=== PATIENT | female | born 1950 | race Caucasian/White ===

== ENCOUNTER 2016-12-31 16:27 | Emergency (ER) | payer OTHER, MEDICARE ==
[2016-12-31 16:44] VITALS: BP 135/85
--- NOTE | 2016-12-31 17:45 | UC ---
Sky Marx Anna, scribed for Gallo Ray MD on 12/31/16 at 1740 . Respiratory Complaint HPI - HPI Summary HPI Summary: Patient is a 66 y/o female coming to [facility] presenting with an intermittent productive cough that began two weeks ago. She has additionally had nasal discharge with some blood, nasal congestion, sinus pressure, and ear pressure. She has some SOB upon exertion. She was recently diagnosed with cellulitis treated with doxycycline. Upon returning to the doctor, she had another week of doxycycline, which she finished 2 weeks ago. She had one day of a sore throat, which was resolved after she continued her doxycycline with her cellulitis. Patient medications were reviewed this visit. - History of Current Complaint Chief Complaint: UCRespiratory Stated Complaint: EAR PLUGGED CONGESTION COUGH Time Seen by Provider: 12/31/16 17:31 Hx Obtained From: Patient ?: No Severity Initially: Moderate Severity Currently: Moderate Character: Cough: Productive - Allergies/Home Medications Allergies/Adverse Reactions: Allergies Allergy/AdvReac Type Severity Reaction Status Date / Time xylocaine blue AdvReac Intermediate Tachycardia Uncoded 11/22/16 20:36 PMH/Surg Hx/FS Hx/Imm Hx Cardiovascular History: Hypertension Other Cardiovascular History: Denies IA Respiratory History: Asthma - as a child, resolved - Surgical History Surgical History: Yes Surgery Procedure, Year, and Place: . breast cyst removal - Family History Known Family History: Negative: Blood Disorder - Social History Alcohol Use: Occasionally Substance Use Type: None Smoking Status (MU): Never Smoked Tobacco - Immunization History Most Recent Influenza Vaccination: 2012 Most Recent Tetanus Shot: January 2013 Most Recent Pneumonia Vaccination: 2011 Review of Systems Constitutional: Negative Skin: Other - cellulitis, resolved Eyes: Negative ENT: Ear Ache - pressure, Nasal Discharge, Other - sinus pressure Respiratory: Shortness Of Breath, Cough Cardiovascular: Negative Gastrointestinal: Negative Genitourinary: Negative Motor: Negative Neurovascular: Negative Musculoskeletal: Negative Neurological: Negative Psychological: Negative All Other Systems Reviewed And Are Negative: Yes Physical Exam Triage Information Reviewed: Yes Appearance: Well-Appearing, No Pain Distress Vital Signs: Initial Vital Signs Temp 97.9 F 12/31/16 16:41 Pulse 94 12/31/16 16:41 Resp 16 12/31/16 16:41 BP 135/85 12/31/16 16:41 Pulse Ox 100 12/31/16 16:41 Elevated BP noted. Vital Signs Reviewed: Yes Eye Exam: Normal - EOMI, PRIYA ENT: Positive: Pharynx normal - Post pharynx benign, Nasal drainage, Other:. Negative: TM red Neck: Positive: Supple, Nontender Respiratory: Positive: Lungs clear, Normal breath sounds, No respiratory distress, Other: - cough dry Cardiovascular: Positive: RRR Musculoskeletal Exam: Normal Musculoskeletal: Positive: Strength Intact, ROM Intact Neurological Exam: Normal - sensory/motor intact, A&O x3 Psychological Exam: Normal - affect/mood appropriate Skin Exam: Normal - warm, dry, skin color reflects adequate perfusion UC Diagnostic Evaluation - Laboratory O2 Sat by Pulse Oximetry: 100 Respiratory Course/Dx - Differential Dx/Diagnosis Provider Diagnoses: Blood pressure in poor control. SINUSITIS,LEFT SEROUS OTITIS MEDIA. Discharge - Discharge Plan Condition: Stable Disposition: HOME Prescriptions: Amoxicillin/Clavulanate TAB* [Augmentin TAB 875*] 875 mg PO BID #20 tab Patient Education Materials: Sinusitis (ED), Serous Otitis Media (ED) Referrals: Shantel Rothman MD [Primary Care Provider] - Additional Instructions: FOLLOW UP WITH YOUR DOCTOR. RETURN TO THE EMERGENCY DEPARTMENT FOR ANY WORSENING OF YOUR CONDITION OR QUESTIONS OR CONCERNS. The documentation as recorded by the Sky wetzel Anna accurately reflects the service I personally performed and the decisions made by me, Gallo Ray MD.
== END 2016-12-31 17:48 | disposition home or self-care (01) ==
LOC: UCEAST 16:27
DX: J32.9 Chronic sinusitis, unspecified (principal); I10 Essential (primary) hypertension; H65.92 Unspecified nonsuppurative otitis media, left ear
CPT/HCPCS: 99212; G0463

== ENCOUNTER 2017-04-15 06:17 | Emergency (ER) | payer MEDICARE, OTHER ==
[2017-04-15] MEDS ORDERED: NS 0.9% 1000 ML* 1,000 ML IV ONE (06:39)
[2017-04-15] MEDS ORDERED: Ondansetron INJ* 2 MG/ML VIAL IV ONE ×2 (06:39→07:43)
--- NOTE | 2017-04-15 06:56 | ED ---
Terrence Marx Nikita, scribed for Gallo Ray MD on 04/15/17 at 0634 . Complex/Multi-Sys Presentation - HPI Summary HPI Summary: This patient is a 66 year old F BIBA to ED with a chief complaint of nausea and dizziness since 0400. Pt woke up feeling nauseous and dizzy/lightheaded, staggered to the bathroom where she passed stool (loose stool, not unusual). The CC is described as totally not myself and feeling off-balanced (resolved ). The pt rates the pain 0/10 in severity. Symptoms aggravated by nothing (not aggravated by movement of head). Symptoms alleviated by nothing. Patient reports nausea, dizziness, and diaphoresis. Patient denies diarrhea, ORTEGA, CP, ear pain, sinus infection, abdominal pain, rhinorrhea, urinary symptoms, body aches, and congestion. Pt denies any previous episodes. Pt is takes potassium ( usually takes it at 0630), B12, and Vitamin C. Pt reports she tends to use Tylenol when she feels palpitations during travel. PMHx of Afib. - History Of Current Complaint Time Seen by Provider: 04/15/17 06:19 Hx Obtained From: Patient Onset/Duration: Sudden Onset - 399, Lasting Hours, Still Present Timing: Constant Severity Currently: None - 0/10 Aggravating Factor(s): Nothing (movement of head does not aggravate) Alleviating Factor(s): Nothing Associated Signs And Symptoms: Positive: Other - Pt reports nausea, dizziness ( lightheaded), totally not myself, feeling off-balanced (resolved), diaphoresis. Patient denies diarrhea, ORTEGA, CP, ear pain, sinus infection, abdominal pain, rhinorrhea, urinary symptoms, body aches, and congestion. - Allergies/Home Medications Allergies/Adverse Reactions: Allergies Allergy/AdvReac Type Severity Reaction Status Date / Time xylocaine blue AdvReac Intermediate Tachycardia Uncoded 04/15/17 06:29 PMH/Surg Hx/FS Hx/Imm Hx Cardiovascular History: Reports: Hx Hypertension - htn/rapid heart rate, Other Cardiovascular Problems/Disorders - mitral valve prolapse (years ago) Sensory History: Reports: Hx Contacts or Glasses Opthamlomology History: Reports: Hx Contacts or Glasses Psychiatric History: Reports: Hx Anxiety - Cancer History Hx Chemotherapy: No Hx Radiation Therapy: No - Surgical History Surgery Procedure, Year, and Place: . breast cyst removal Infectious Disease History: Denies: Hx Clostridium Difficile, Hx Hepatitis, Hx Human Immunodeficiency Virus (HIV), Hx of Known/Suspected MRSA, Hx Shingles, Hx Tuberculosis, Hx Known/ Suspected VRE, Hx Known/Suspected VRSA, History Other Infectious Disease, Traveled Outside the [place] in Last 30 Days - Family History Known Family History: Negative: Blood Disorder - Social History Alcohol Use: Occasionally Substance Use Type: Reports: None Smoking Status (MU): Never Smoked Tobacco Review of Systems Positive: Skin Diaphoresis Positive: Other - NEGATIVE: ear pain, sinus infection, rhinorrhea, congestion Negative: Chest Pain Positive: Nausea. Negative: Abdominal Pain, Diarrhea Positive: other - NEGATIVE: urinary symptoms Positive: Other - NEGATIVE: body aches Neurological: Other - Dizziness (lightheaded) Negative: Headache All Other Systems Reviewed And Are Negative: Yes Physical Exam - Summary Physical Exam Summary: General: mildly ill appearing, no pain distress Skin: warm, color reflects adequate perfusion, dry Head: normal Eyes: EOMI, PRIYA ENT: normal Neck: supple, nontender Respiratory: CTA, breath sounds present Cardiovascular: RRR Abdomen: soft, nontender Bowel: present Musculoskeletal: normal, strength/ROM intact Neurological: normal, sensory/motor intact, A&O x3 Psychological: affect/mood appropriate Triage Information Reviewed: Yes Vital Signs On Initial Exam: Initial Vitals Temp Pulse Resp BP Pulse Ox 97.1 F 66 10 / 99 04/15/17 06:18 04/15/17 06:18 04/15/17 06:18 04/15/17 06:18 04/15/17 06:18 Vital Signs Reviewed: Yes - Fitzwilliam Coma Scale Coma Scale Total: 15 Diagnostics - Vital Signs Vital Signs Temp Pulse Resp BP Pulse Ox 04/15/17 06:20 97.1 F 66 10 / 99 04/15/17 06:18 97.1 F 66 10 99 - Laboratory Lab Statement: Any lab studies that have been ordered have been reviewed, and results considered in the medical decision making process. - EKG 0620 Cardiac Rate: NL - 66 bpm EKG Rhythm: Sinus Rhythm ST Segment: Normal Ectopy: None Complex Multi-Symp Course/Dx Course Of Treatment: Work up and disposition pending at shift change. Signed out to Dr Nicholas. Assessment/Plan: This patient is a 66 year old F BIBA to ED with a chief complaint of nausea and dizziness since 0. Pt woke up feeling nauseous and dizzy/lightheaded, staggered to the bathroom where she passed stool (loose stool , not unusual). The CC is described as totally not myself and feeling off- balanced (resolved). The pt rates the pain 0/10 in severity. Symptoms aggravated by nothing (not aggravated by movement of head). Symptoms alleviated by nothing. Patient reports nausea, dizziness, and diaphoresis. Patient denies diarrhea, ORTEGA, CP, ear pain, sinus infection, abdominal pain, rhinorrhea, urinary symptoms, body aches, and congestion. Pt denies any previous episodes. In the ED course, pt was given Zofran and fluids. - Diagnoses Provider Diagnoses: Lightheaded, Nausea, Balance problem Discharge - Discharge Plan Condition: Stable Disposition: OTHER Discharge Disposition Comment: . Referrals: Shantel Rothman MD [Primary Care Provider] - The documentation as recorded by the Terrence wetzel Nikita accurately reflects the service I personally performed and the decisions made by me, Gallo Ray MD.
[2017-04-15 07:15] LABS: Hematocrit 41 % (35-47); Hemoglobin 13.7 g/dl (12.0-16.0); Mean Corpuscular HGB Conc 33 g/dl (31-36); Mean Corpuscular Hemoglobin 30 pg (27-31); Mean Corpuscular Volume 90 fL (80-97); Mean Platelet Volume 9 um3 (7.4-10.4); Red Blood Count 4.56 10^6/ul (4.0-5.4); Red Cell Distribution Width 14 % (10.5-15); White Blood Count 9.1 10^3/ul (3.5-10.8)
[2017-04-15 07:38] LABS: ALT 20 U/L (7-52); AST 20 U/L (13-39); Albumin 4.2 g/dL (3.2-5.2); Alkaline Phosphatase 49 U/L (34-104); Anion Gap 7 mmol/L (2-11); BUN/Creatinine Ratio 28.6 (8-20); Blood Urea Nitrogen 26 mg/dL (6-24); C Reactive Protein < 1.00 mg/L (< 5.00); CO2 Carbon Dioxide 25 mmol/L (22-32); Calcium 9.3 mg/dL (8.6-10.3); Chloride 106 mmol/L (101-111); Creatine Kinase 119 U/L (10-223); EGFR African American 79.1 (>60); EGFR Non-African American 61.5 (>60); Globulin 2.3 g/dL (2-4); Glucose 124 mg/dL (70-100); Lipase 47 U/L (11.0-82.0); Magnesium 2.1 mg/dL (1.9-2.7); Potassium 3.6 mmol/L (3.5-5.0); Sodium 138 mmol/L (133-145); Total Protein 6.5 g/dL (6.4-8.9)
[2017-04-15] MEDS ORDERED: NS 0.9% 1000 ML* 3,000 ML IV ONE (07:42)
[2017-04-15] MEDS ORDERED: Meclizine TAB* 12.5 MG PO ONE (07:44)
--- NOTE | 2017-04-15 07:49 | RAD ---
HISTORY: Nausea COMPARISONS: None VIEWS: 1: frontal portable view of the chest at 7:25 AM FINDINGS: LINES AND TUBES: None. CARDIOMEDIASTINAL SILHOUETTE: There are calcified left hilar lymph nodes. PLEURA: The costophrenic angles are sharp. No pleural abnormalities are noted. LUNG PARENCHYMA: There is a calcified granuloma of the left upper lobe with a probable calcified granuloma at the left cardiophrenic angle. ABDOMEN: The upper abdomen is clear. There is no subphrenic gas. BONES AND SOFT TISSUES: No bone or soft tissue abnormalities are noted. IMPRESSION: EVIDENCE OF EXPOSURE TO GRANULOMATOUS DISEASE. NO ACTIVE CARDIOPULMONARY DISEASE.
--- NOTE | 2017-04-15 08:00 | RAD ---
HISTORY: Altered balance, dizziness COMPARISONS: None TECHNIQUE: Multiple contiguous axial CT scans were obtained of the head without intravenous contrast. FINDINGS: HEMORRHAGE/INFARCT: There is no hemorrhage or acute infarct. MASSES/SHIFT: There is no mass or shift. EXTRA-AXIAL SPACES: There are no extra-axial fluid collections. SULCI AND VENTRICLES: The sulci and ventricles are normal in size and position for the patient's stated age. CEREBRUM: There are no focal parenchymal abnormalities. BRAINSTEM: There are no focal parenchymal abnormalities. CEREBELLUM: There are no focal parenchymal abnormalities. VESSELS: The vessels are grossly normal. PARANASAL SINUSES: The paranasal sinuses are clear. ORBITS: The orbits are unremarkable. BONES AND SOFT TISSUE: No bone or soft tissue abnormalities are noted. OTHER: None IMPRESSION: NO ACUTE INTRACRANIAL PATHOLOGY.
[2017-04-15 08:49] LABS: TSH (Thyroid Stimulating Horm) 3.17 mcIU/mL (0.34-5.60)
[2017-04-15 09:23] VITALS: BP 127/62
[2017-04-15 10:11] LABS: Urine Bacteria Absent (Absent); Urine Bilirubin Negative (Negative); Urine Glucose Negative (Negative); Urine Nitrite Negative (Negative)
--- NOTE | 2017-04-15 14:41 | ED ---
Corina Marx Nilda, scribed for Nick Nicholas MD on 04/15/17 at 0743 . Progress - Progress Note Progress Note: Pt was signed out from Dr. Ray, pending disposition, awaiting Brain CT and CXR. Pt is a 66 y/o F who presents to ED c/o dizziness characterized as near syncopal. Sx began this morning upon waking up and have gradually worsened. Initially, she was not experiencing room spinning, but upon laying down for her CT, the design on the ceiling began spinning. Negative LOC. Sx aggravated by laying down, alleviated by nothing. Additionally c/o nausea and diaphoresis. Denies CP, SOB, weakness, slurred speech, tinnitus, hearing loss and edema. No recent illnesses. No prior similar episodes of sx. PMHx A Fib after which she is on potassium supplements. Is not on a blood thinner. NKDA. PE reveals: The patient is well-nourished in no acute distress and in no acute pain. The skin is warm and dry and skin color reflects adequate perfusion. HEENT: The head is normocephalic and atraumatic. The pupils are equal and reactive. The conjunctivae are clear and without drainage. She has some horizontal nystagmus. She has no facial droop. Nares are patent and without drainage. Mouth reveals moist mucous membranes and the throat is without erythema and exudate. The external ears are intact. The ear canals are patent and without drainage. The tympanic membranes are intact. Neck is supple with full range of motion and non-tender. There are no carotid bruits. Respiratory: Chest is non-tender. Lungs are clear to auscultation and breath sounds are symmetrical and equal. Cardiovascular: Hear is regular rate and rhythm. There is no murmur or rub auscultated. There is no peripheral edema and pulses are symmetrical and equal. Abdomen: The abdomen is soft and non-tender. There are normal bowel sounds heard in all four quadrants and there is no organomegaly palpated. Musculoskeletal: There is no back pain noted. Extremities are non-tender with full range of motion. There is good capillary refill. There is no peripheral edema or calf tenderness elicited. Neurological: Patient is alert and oriented to person, place and time. The patient has symmetrical motor strength in all four extremities. There is no motor weakness in the UE or LE. There is no facial droop. Psychiatric: The patient has an appropriate affect and does not exhibit any anxiety or depression. - Results/Orders Results/Orders: CXR, as read by radiologist, reveals: EVIDENCE OF EXPOSURE TO GRANULOMATOUS DISEASE. NO ACTIVE CARDIOPULMONARY DISEASE. ED physician reviewed radiology report and agrees. Brain CT, as read by radiologist, reveals: NO ACUTE INTRACRANIAL PATHOLOGY. ED physician reviewed radiology report and agrees. Re-Evaluation - Re-Evaluation First Eval Re-Evaluation Time: 09:17 Change: Improved Comment: Pt's symptoms have improved. She would like to change positions to see if that helps symptoms further improve. Second Eval Re-Evaluation Time: 09:52 Change: Improved Comment: Feels significantly better. Course/Dx - Course Course Of Treatment: Pt is a 66 y/o F who presents to ED c/o dizziness characterized as near syncopal. Sx began this morning upon waking up and have gradually worsened. Initially, she was not experiencing room spinning, but upon laying down for her CT, the design on the ceiling began spinning. Negative LOC. Sx aggravated by laying down, alleviated by nothing. Additionally c/o nausea and diaphoresis. Denies CP, SOB, weakness, slurred speech, tinnitus, hearing loss and edema. No recent illnesses. No prior similar episodes of sx. PMHx A Fib after which she is on potassium supplements. Is not on a blood thinner. NKDA. CXR and Brain CT reveals no acute findings. In the ED course, pt was given Meclizine, Zofran and fluids which improved sx. Pt's condition is stable and will be D/C to home with Dx of vertigo and labrynthitis, Rx for Meclizine and Zofran and a follow up with her PCP. She understands and agrees. BP noted and advised f/u. - Diagnoses Provider Diagnoses: Vertigo, Labyrinthitis The documentation as recorded by the Corina wetzel Nilda accurately reflects the service I personally performed and the decisions made by me, Nick Nicholas MD.
== END 2017-04-15 10:22 ==
LOC: ED 06:17
DX: R42 Dizziness and giddiness (principal); H83.09 Labyrinthitis, unspecified ear; I48.91 Unspecified atrial fibrillation; I10 Essential (primary) hypertension; I34.1 Nonrheumatic mitral (valve) prolapse; F41.9 Anxiety disorder, unspecified; R11.0 Nausea; R26.9 Unspecified abnormalities of gait and mobility
CPT/HCPCS: 36415; 70450; 71010; 80053; 81003; 81015; 82550; 82553; 83605; 83690; 83735; 83880; 84443; 84484; 85025; 85610; 85730; 86140; 87086; 93005; 96360; 96374; 96375; 96376; 99282; A9270-GY; J2405

== ENCOUNTER 2019-07-10 18:35 | Emergency (ER) | payer OTHER ==
[2019-07-10 18:46] VITALS: BP 141/78
--- NOTE | 2019-07-10 19:57 | UC ---
Respiratory Complaint HPI - HPI Summary HPI Summary: cough for 1 week no fevers---she states she cannot tolerate any decongestants , mucolytics, Proventil inhalers she states they cause he a-fib. sincere her pcp gave her z-pack but cough and sputum is getting worse and when this happens she needs Augmentin - History of Current Complaint Chief Complaint: UCRespiratory Stated Complaint: COUGH Time Seen by Provider: 07/10/19 19:47 Hx Obtained From: Patient ?: No Onset/Duration: Gradual Onset, Lasting Days - 7, Worse Since - getting worse daily Timing: Constant Pain Intensity: 0 Pain Scale Used: 0-10 Numeric Character: Cough: Productive Aggravating Factors: Nothing Alleviating Factors: Nothing - Allergies/Home Medications Allergies/Adverse Reactions: Allergies Allergy/AdvReac Type Severity Reaction Status Date / Time xylocaine blue AdvReac Intermediate Tachycardia Uncoded 07/10/19 18:46 PMH/Surg Hx/FS Hx/Imm Hx Previously Healthy: No Cardiovascular History: Atrial Fibrillation Psychological History: Anxiety - Surgical History Surgical History: Yes Surgery Procedure, Year, and Place: . breast cyst removal - Family History Known Family History: Positive: None Negative: Blood Disorder - Social History Occupation: Employed Full-time Lives: With Family Alcohol Use: Occasionally Substance Use Type: None Smoking Status (MU): Never Smoked Tobacco - Immunization History Most Recent Influenza Vaccination: 2012 Most Recent Tetanus Shot: January 2013 Most Recent Pneumonia Vaccination: 2011 Review of Systems All Other Systems Reviewed And Are Negative: Yes Constitutional: Positive: Negative Skin: Positive: Negative Eyes: Positive: Negative ENT: Positive: Negative Respiratory: Positive: Cough Cardiovascular: Positive: Negative Gastrointestinal: Positive: Negative Genitourinary: Positive: Negative Motor: Positive: Negative Neurovascular: Positive: Negative Musculoskeletal: Positive: Negative Neurological: Positive: Negative Psychological: Positive: Negative Is Patient Immunocompromised?: No Physical Exam Triage Information Reviewed: Yes Appearance: Well-Appearing, No Pain Distress, Well-Nourished Vital Signs: Initial Vital Signs Temp 97.9 F 07/10/19 18:43 Pulse 79 07/10/19 18:43 Resp 16 07/10/19 18:43 BP 141/78 07/10/19 18:43 Pulse Ox 98 07/10/19 18:43 Vital Signs Reviewed: Yes Eye Exam: Normal Eyes: Positive: Conjunctiva Clear ENT Exam: Normal ENT: Positive: Normal ENT inspection, Hearing grossly normal, Pharynx normal, TMs normal, Uvula midline. Negative: Nasal congestion, Trismus, Muffled voice, Hoarse voice, Dental tenderness, Sinus tenderness Dental Exam: Normal Neck exam: Normal Neck: Positive: Supple, Nontender Respiratory Exam: Normal Respiratory: Positive: Chest non-tender, Lungs clear, Normal breath sounds, No respiratory distress, No accessory muscle use Cardiovascular Exam: Normal Cardiovascular: Positive: RRR, No Murmur, Pulses Normal, Brisk Capillary Refill Musculoskeletal Exam: Normal Musculoskeletal: Positive: Strength Intact, ROM Intact, No Edema Neurological Exam: Normal Neurological: Positive: Alert, Muscle Tone Normal Psychological Exam: Normal Skin Exam: Normal Skin: Positive: Rashes Respiratory Course/Dx - Course Course Of Treatment: patient encourage to use saline nasal spray and cool mist humidification to help keep mucous moist to promote pulmonary toileting - Differential Dx/Diagnosis Provider Diagnosis: Congestion of respiratory tract Discharge ED - Sign-Out/Discharge Documenting (check all that apply): Patient Departure All imaging exams completed and their final reports reviewed: No Studies - Discharge Plan Condition: Stable Disposition: HOME Prescriptions: Amoxicillin/Clavulanate TAB* [Augmentin TAB 875*] 875 mg PO BID #19 tab Patient Education Materials: Hypertension (ED), Acute Cough (ED) Referrals: Simin Flores NP [Primary Care Provider] - 1 Week - Billing Disposition and Condition Condition: STABLE Disposition: Home
[2019-07-10] MEDS ORDERED: Amoxicillin/Clavulanate TAB* 875 MG PO ONE (20:01)
== END 2019-07-10 20:05 | disposition home or self-care (01) ==
LOC: UCEAST 18:35
DX: R09.89 Other specified symptoms and signs involving the circulatory and respiratory systems (principal); R05 Cough; I48.91 Unspecified atrial fibrillation; Z88.8 Allergy status to other drugs, medicaments and biological substances
CPT/HCPCS: 99212; A9270-GY; G0463

== ENCOUNTER 2019-07-17 18:54 | Emergency (ER) | payer OTHER ==
--- NOTE | 2019-07-17 19:30 | ED ---
GI/ HPI - HPI Summary HPI Summary: Patient is a 68 y/o F presenting to the ED for a chief complaint of nausea and vomiting that began on the evening of 07/17/19. Patient is present with her . Patient states that her symptoms initially began after having a productive cough with clear phlegm that began a few weeks ago. She took a Z- pack without relief. She later saw her PCP who prescribed Augmentin one week ago for the cough without relief. She also complains of diarrhea, abdominal discomfort, generalized weakness, chills, and shortness of breath that all began on 07/17/19. Patient also notes nasal congestion and rhinorrhea. She denies fever, rash, changes in appetite, or blood in the stool. She took Pedialyte, but vomited after drinking it. She notes having a history of recurrent cough, which lasts up to 3 months if not treated with antibiotics. Her PCP ordered a chest x-ray in the past that showed a remote fungal infection. She was previously seen at [facility] for her symptoms. Patient denies a PMHx of ulcers or diverticulitis. PMHx is significant for vertigo and atrial fibrillation. She denies taking blood thinners. - History of Current Complaint Chief Complaint: EDNauseaVomitDiarrh Time Seen by Provider: 07/17/19 19:24 Stated Complaint: GENERAL ILLNESS PER PT Hx Obtained From: Patient Onset/Duration: Atraumatic, Still Present Timing: Constant Severity: Mild Current Severity: Mild Pain Intensity: 0 Location of Pain: Diffuse Associated Signs and Symptoms: Positive: Nausea, Vomiting, Diarrhea, Chills, Abdominal Pain - Discomfort, Cough. Negative: Blood w/Stool, Fever, Change in Appetite Aggravating Factor(s): Nothing Alleviating Factor(s): Nothing - Allergy/Home Medications Allergies/Adverse Reactions: Allergies Allergy/AdvReac Type Severity Reaction Status Date / Time xylocaine blue AdvReac Intermediate Tachycardia Uncoded 07/10/19 18:46 Home Medications: Home Medications ALPRAZolam TAB* [Xanax TAB*] 0.5 - 1 tab PO Q8H PRN 07/17/19 [History Confirmed 07/17/19] Atenolol TAB* [Tenormin TAB* 25 MG] 25 mg PO DAILY PRN 07/17/19 [History Confirmed 07/17/19] Escitalopram * [Lexapro *] 2.5 mg PO DAILY 07/17/19 [History Confirmed 07/17/19] Meclizine TAB* [Antivert 12.5 TAB*] 25 mg PO QID PRN 07/17/19 [History Confirmed 07/17/19] PMH/Surg Hx/FS Hx/Imm Hx Previously Healthy: Yes Endocrine/Hematology History: Denies: Hx Anticoagulant Therapy, Hx Diabetes Cardiovascular History: Reports: Hx Atrial Fibrillation, Hx Hypertension, Other Cardiovascular Problems/Disorders - mitral valve prolapse (years ago) RESOLVED Respiratory History: Denies: Other Respiratory Problems/Disorders Sensory History: Reports: Hx Contacts or Glasses Denies: Hx Legally Blind, Hx Deafness Opthamlomology History: Reports: Hx Contacts or Glasses Denies: Hx Legally Blind EENT History: Denies: Hx Deafness Neurological History: Reports: Other Neuro Impairments/Disorders - Vertigo Psychiatric History: Reports: Hx Anxiety - Cancer History Hx Chemotherapy: No Hx Radiation Therapy: No - Surgical History Surgical History: Yes Surgery Procedure, Year, and Place: . breast cyst removal Infectious Disease History: No Infectious Disease History: Denies: Hx Clostridium Difficile, Hx Hepatitis, Hx Human Immunodeficiency Virus (HIV), Hx of Known/Suspected MRSA, Hx Shingles, Hx Tuberculosis, Hx Known/ Suspected VRE, Hx Known/Suspected VRSA, History Other Infectious Disease, Traveled Outside the [place] in Last 30 Days - Family History Known Family History: Negative: Cardiac Disease, Blood Disorder - Social History Occupation: Employed Full-time Lives: With Family Alcohol Use: Occasionally Hx Substance Use: No Substance Use Type: Reports: None Hx Tobacco Use: No Smoking Status (MU): Never Smoked Tobacco Review of Systems Positive: Chills. Negative: Fever, Other - Negative changes in appetite Positive: Nasal Discharge, Other - Positive nasal congestion Positive: Shortness Of Breath, Cough - Productive with clear phlegm Positive: Abdominal Pain - Discomfort, Vomiting, Diarrhea, Nausea. Negative: Other - Negative blood in the stool Negative: Rash Positive: Weakness - Generalized All Other Systems Reviewed And Are Negative: Yes Physical Exam - Summary Physical Exam Summary: Appearance: Well-appearing, Well-nourished, lying in bed comfortably Skin: Warm, dry, no obvious rash Eyes: sclera anicteric, no conjunctival pallor ENT: mucous membranes moist, pharynx appears normal Neck: Supple, nontender Respiratory: Clear to auscultation, no signs of respiratory distress Cardiovascular: Normal S1, S2. No murmurs. Normal distal pulses in tibial and radial bilaterally. Abdomen: Soft, nontender, normal active bowel sounds present Musculoskeletal: Normal, Strength/ROM Intact Neurological: A&Ox3, awake and alert, mentation is normal, speech is fluent and appropriate Psychiatric: affect is normal, does not appear anxious or depressed Triage Information Reviewed: Yes Vital Signs On Initial Exam: Initial Vitals Temp Pulse Resp BP Pulse Ox 99.1 F 79 16 135/76 97 07/17/19 18:55 07/17/19 18:55 07/17/19 18:55 07/17/19 18:55 07/17/19 18:55 Vital Signs Reviewed: Yes Procedures - Sedation Patient Received Moderate/Deep Sedation with Procedure: No Diagnostics - Vital Signs Vital Signs Temp Pulse Resp BP Pulse Ox 07/17/19 18:55 99.1 F 79 16 135/76 97 - Laboratory Result Diagrams: 07/17/19 19:48 07/17/19 19:48 Lab Statement: Any lab studies that have been ordered have been reviewed, and results considered in the medical decision making process. GIGU Course/Dx - Course Course Of Treatment: Patient is a 68 y/o F presenting to the ED for a chief complaint of nausea and vomiting that began on the evening of 07/17/19. Patient is present with her . Patient states that her symptoms initially began after having a productive cough with clear phlegm that began a few weeks ago. She took a Z-pack without relief. She later saw her PCP who prescribed Augmentin one week ago for the cough without relief. She also complains of diarrhea, abdominal discomfort, generalized weakness, chills, and shortness of breath that all began on 07/17/19. Patient also notes nasal congestion and rhinorrhea. She denies fever, rash, changes in appetite, or blood in the stool. She took Pedialyte, but vomited after drinking it. She notes having a history of recurrent cough, which lasts up to 3 months if not treated with antibiotics. Her PCP ordered a chest x-ray in the past that showed a remote fungal infection. She was previously seen at [facility] for her symptoms. Patient denies a PMHx of ulcers or diverticulitis. PMHx is significant for vertigo and atrial fibrillation. She denies taking blood thinners. On exam, unremarkable findings. In the ED course, patient was given Zofran 8 mg IV and fluids. Laboratory abnormal findings: absolute neuts 8.1, absolute lymphs 0.4, BUN/ Creatinine ratio 25.3, glucose 108. Microbiology findings: stool color mckeon, stool form nonformed, stool consistency mucoid liquid, c difficile DNA amplification negative. Patient will be discharged with a diagnosis of acute nausea and vomiting. Follow up with PCP within 2 days. - Diagnoses Provider Diagnoses: Nausea and vomiting Discharge ED - Sign-Out/Discharge Documenting (check all that apply): Patient Departure - Discharge - Discharge Plan Condition: Good Disposition: HOME Prescriptions: Ondansetron ODT TAB* [Zofran 4 MG Odt TAB*] 8 mg PO Q6H PRN #14 tab.odt PRN Reason: Nausea Patient Education Materials: Acute Nausea and Vomiting (ED) Referrals: Simin Flores, [facility] [Primary Care Provider] - 2 Days (if not better) Additional Instructions: The C. diff test was negative. You can finish your antibiotic and take the zofran to help with the nausea. Stick to a clear liquid diet for the rest of the weekend, advance on Friday if you are feeling better. - Billing Disposition and Condition Condition: GOOD Disposition: Home - Attestation Statements Document Initiated by Sanchez: Yes Documenting German[place]vish: Brynn Kathleen Provider For Whom Sanchez is Documenting (Include Credential): Braeden Carr MD Scribe Attestation: Brynn Marx scribed for Braeden Carr MD on 07/18/19 at 0135. Scribe Documentation Reviewed: Yes Provider Attestation: The documentation as recorded by the Brynn wetzel accurately reflects the service I personally performed and the decisions made by me, Braeden Carr MD Status of Scribvish Document: Viewed
[2019-07-17] MEDS ORDERED: NS 0.9% 1000 ML** 1,000 ML IV ONE (19:34)
[2019-07-17] MEDS ORDERED: Ondansetron INJ* 2 MG/ML VIAL IV ONE (19:34)
[2019-07-17 20:00] LABS: ABS Eosinophils 0.1 10^3/ul (0-0.6); ABS Lymphocytes 0.4 10^3/ul (1.0-4.8); ABS Monocytes 0.4 10^3/ul (0-0.8); ABS Neutrophils 8.1 10^3/ul (1.5-7.7); Eosinophil % 0.9 %; Hematocrit 42 % (35-47); Hemoglobin 14.2 g/dL (12.0-16.0); Lymphocyte % 4.5 %; Mean Corpuscular HGB Conc 34 g/dL (31-36); Mean Corpuscular Hemoglobin 31 pg (27-31); Mean Corpuscular Volume 92 fL (80-97); Mean Platelet Volume 8.3 fL (7.4-10.4); Platelet Count 222 10^3/uL (150-450); Red Blood Count 4.59 10^6 /uL (3.70-4.87); Red Cell Distribution Width 13 % (10-15)
[2019-07-17 20:14] LABS: Albumin 3.8 g/dL (3.2-5.2); Albumin/Globulin Ratio 1.5 (1-3); BUN/Creatinine Ratio 25.3 (8-20); Calcium 9.2 mg/dL (8.6-10.3); EGFR African American 82.2 (>60); Globulin 2.6 g/dL (2-4); Potassium 3.9 mmol/L (3.5-5.0); Total Bilirubin 0.7 mg/dL (0.2-1.0); Total Protein 6.4 g/dL (6.4-8.9)
[2019-07-17 23:23] VITALS: BP 107/63
== END 2019-07-17 23:20 | disposition home or self-care (01) ==
LOC: ED 18:54
DX: R11.2 Nausea with vomiting, unspecified (principal); R19.7 Diarrhea, unspecified; R05 Cough; R68.83 Chills (without fever); I10 Essential (primary) hypertension; F41.9 Anxiety disorder, unspecified; R42 Dizziness and giddiness; Z88.4 Allergy status to anesthetic agent
CPT/HCPCS: 36415; 80053; 85025; 87493; 96361; 96374; 99283; J2405